=== PATIENT | female | born 2000 | race Caucasian/White ===

== ENCOUNTER 2025-04-05 15:05 | Emergency (ER) | payer OTHER, SELFPAY ==
[2025-04-05 15:20] VITALS: BP 149/88
[2025-04-05 15:47] LABS: Hematocrit 36.9 % (37.0-47.0); Hemoglobin 12.1 g/dL (12.0-16.0); Mean Corp Hgb Conc. 32.8 g/dL (33.0-37.0); Mean Corpuscular Volume 86.6 fL (81.0-99.0); Nucleated Red Blood Cells % 0 %; Platelet Count 264 10^3/uL (130-400); Red Cell Dist. Width 15.1 % (11.5-14.5)
[2025-04-05 15:53] LABS: HCG, Serum Qualitative Screen Negative
[2025-04-05 16:02] LABS: ALT (SGPT) 15 U/L (0-35); AST (SGOT) 22 U/L (14-36); Albumin 4.5 g/dl (3.5-5.0); Alkaline Phosphatase 73 U/L (38-126); Blood Urea Nitrogen 15 mg/dl (7-17); Calcium 9.7 mg/dl (8.4-10.2); Carbon Dioxide 20 mmol/L (22-30); Chloride 109 mmol/L (98-107); Glucose 138 mg/dl (70-99); Potassium 3.4 mmol/L (3.5-5.1); Sodium 139 mmol/L (135-145); Total Protein 7.7 g/dl (6.3-8.2); eGFR > 60.00
[2025-04-05 16:09] LABS: Troponin I < 0.012 ng/ml
[2025-04-05 17:50] VITALS: BP 132/80
[2025-04-05 17:51] VITALS: BP 132/80
[2025-04-05] MEDS: KCL 40 MEQ PO (17:53)
--- NOTE | 2025-04-05 17:55 | ED.GENMED ---
History of Present Illness
General
Chief Complaint: Heart Rate Problem
Source: patient and family
Exam Limitations: none
Time Seen by Provider: 04/05/25 17:35
History of Present Illness
History of Present Illness:
25yoF with no significant past medical history presenting with her mother for evaluation of palpitations. Patient reports her heart rate has been elevated for the past few days. Her heart rate spiked to the high 140s this afternoon while she was
resting. She also reports a pain in the center of her chest and feeling like she is unable to take a deep enough breath. She did a 45 minute Pilates class this morning and did not have any symptoms during exercise. She had one cappuccino today
but she does not typically drink caffeine. She denies any drug or alcohol use. She does not take any prescription medications. Of note, patient was sick with a sinus infection last month and was treated with antibiotics.
Phy Exam
General Physical Exam
General Presentation: well appearing and no apparent distress
General Skin: warm and dry
General Habitus: normal
General Mental: alert
ENT Exam
ENT Exam: normocephalic
Cardiovascular Exam
Cardiovascular Exam: no edema, no murmur and tachycardia
Pulmonary Exam
Pulmonary Exam: lungs clear, no respiratory distress, no rales, no crackles, no rhonchi and no wheezing
Neurological Exam
Neurological Exam: alert
Patel Coma Scale
Eye Opening: Spontaneous
Verbal Response: Oriented
Motor Response: Obeys Commands
GCS Total Score: 15
Skin Exam
Skin Exam: normal color and warm/dry
Psychiatric Exam
Psychiatric Exam: anxious
Course
Orders/Labs/Results
Orders:
Orders
04/05/25 15:25
Electrocardiogram (*1) Urgent
Reason for Study: Chest Pain
EKG- Treatment ONCE
Test Result ONCE
04/05/25 15:37
Complete Blood Count/With Diff Urgent
Comprehensive Metabolic Panel Urgent
HCG, Serum Qualitative Screen Urgent
Comment: Notify provider if positive test present
Magnesium Urgent
Comment: ADD ON
TSH Urgent
Comment: ADD ON
Troponin I Urgent
04/05/25 17:35
Potassium Chloride [KCl] 40 meq PO NOW STA
04/05/25 17:36
Add On- LAB Urgent
Tests Added?: magnesium, TSH
Cardiac Monitoring- Treatment ONCE
04/05/25 17:54
0.9% Sodium Chloride 1000 ml [Nss] 1,000 ml IV BOLUS
04/05/25 17:57
D-Dimer Urgent
04/05/25 18:32
CR Chest - 2 Views Urgent
Comment:
Reason For Exam: CP
Abnormal Lab Results
04/05/25
15:37
Hct 36.9 L %
(37.0-47.0)
MCHC 32.8 L g/dL
(33.0-37.0)
RDW 15.1 H %
(11.5-14.5)
Abs Immat Gran (auto) 0.1 H 10^3/uL
(0-0.05)
Absolute Neuts (auto) 7.0 H 10^3/uL
(1.4-6.5)
Absolute Monos (auto) 0.8 H 10^3/uL
(0.1-0.6)
Immature Gran % 0.6 H %
(0-0.5)
Lymphocytes % 19.4 L %
(20.5-51.1)
Potassium 3.4 L mmol/L
(3.5-5.1)
Chloride 109 H mmol/L
(98-107)
Carbon Dioxide 20 L mmol/L
(22-30)
Glucose 138 H mg/dl
(70-99)
04/05/25 15:37
04/05/25 15:37
Vital Signs
Initial and Last Documented VS:
Initial Vital Signs
Temp Pulse Resp BP Pulse Ox
98.6 F 118 20 149/88 99
04/05/25 15:20 04/05/25 15:20 04/05/25 15:20 04/05/25 15:20 04/05/25 15:20
Last Documented Vital Signs
Temp Pulse Resp BP Pulse Ox
98.6 F 93 23 135/87 100
04/05/25 15:20 04/05/25 19:45 04/05/25 19:45 04/05/25 18:06 04/05/25 18:15
MDM/Problems Addressed
Differential Diagnosis Includes:
25yoF here with palpitations and elevated HR. Also c/o chest tightness. No significant PMH. HR 118 in triage. HR in the low 100s on initial exam. She is well-appearing no acute distress. Exam reassuring. Differential diagnosis includes but is not
limited to: Sinus tachycardia, arrhythmia, dehydration, electrolyte abnormality, thyroid dysfunction, consider PE although less likely
Initial ED plan: Basic labs obtained in triage and potassium is 3.4 which was replaced. EKG shows sinus tachycardia with nonspecific ST/T wave changes. No ectopy. Troponin within normal limits. Will add on magnesium, TSH, D-dimer, and CXR vs. CT
depending on D-dimer results. IV fluid bolus.
*Pulse Oximetry
SaO2: 100
Oxygen Mode of Delivery: Room air
Patient hypoxic: no (99%)
*EKG
Interpreted by ED Provider?: Yes
EKG Intrepretation Date: 04/05/25
Heart Rate: 107
Rate: tachycardiac
Rhythm: sinus
[place]: normal axis
Interval: normal interval
QRS Pattern: normal QRS
Ischemia: non-specific ST changes
*Critical Care Note
Total Time (30-74mins, 75-104mins- exclusive of procedures): Not Applicable
Update Note
Update Note:
TSH within normal limits. D-dimer normal making PE very unlikely. Chest x-ray added which is clear. No telemetry events throughout ED stay. Heart rate improved to the 90s on reassessment. No indication for hospitalization. She was advised to
follow-up with PCP and cardiology. ED return precautions reviewed and she was discharged in stable condition.
ED Attending Note
-
Portions of this chart may have been created with voice recognition software.� Occasional wrong word or��sound alike� substitutions may have occurred due to the inherent limitations of voice recognition software.
Discharge Plan
Departure
Patient Disposition: Home (Routine Discharge)
Date of Disposition: 04/05/25
Time of Disposition: 19:52
Patient with high blood pressure during this ER visit?: No
Discharge Problem:
Palpitations
Instructions: Palpitations (DC)
Referrals:
Elida Matute [Other]
[facility] [Provider Group]
Param Urias MD [Active, Cardiology]
Activity Restrictions/Additional Instructions:
Please call on Monday to schedule follow-up appointments with a family doctor and cardiology. Return to the ER with any new or worsening symptoms.
Interventions
Interventions:
*Risk Screen - Suicide Last Done: 04/05/25 15:20
*General Assessment Last Done: 04/05/25 15:20
*Neglect/Abuse Screening Last Done: 04/05/25 15:20
*ED- Fall Risk Assessment Last Done: 04/05/25 17:54
*ED COVID-19 Vaccine History Last Done: 04/05/25 17:54
*Nursing Disposition Last Done: 04/05/25 20:17
ED- Cardiac Assessment Last Done: 04/05/25 17:51
ED- Pulmonary Assessment Last Done: 04/05/25 17:51
Discharge Date and Time
Discharge Date/Time: 04/05/25 20:17
Print Language: GUAMANIAN
[2025-04-05 18:06] VITALS: BP 135/87
[2025-04-05] MEDS: NSS 1000 IV (18:06)
[2025-04-05 18:09] LABS: Magnesium 1.7 mg/dl (1.6-2.3)
[2025-04-05 18:25] LABS: D-Dimer 0.34 ug/mlFEU (0.00-0.50)
[2025-04-05 18:40] LABS: TSH 1.94 uIU/ml (0.47-4.68)
== END 2025-04-05 20:17 | disposition home or self-care (01) ==
LOC: EMR 15:05
PROVIDERS: Emergency Medicine; Physician Assistant; EMERGENCY PHYSICIAN Student in an Organized Health Care Education/Training Program
DX: R00.2 Palpitations (principal); R07.89 Other chest pain; R00.0 Tachycardia, unspecified
CPT/HCPCS: 96360; 99285; 71046; 80053; 83735; 84443; 84484; 84703; 85025; 85379; 93005